=== PATIENT | female | born 1945 | race Caucasian/White ===

== ENCOUNTER 2023-11-06 05:59 | Observation (INO) ==
--- NOTE | 2023-10-19 15:12 | PAT Medication Instructions ---
Medication Instructions Date of Service October 19, 2023 Home Medications cholecalciferol (vitamin D3) 125 mcg (5,000 unit) disintegrating tablet 125 mcg PO Q30D clonidine HCl 0.17 mg tablet,extended release 24 hr 0.17 mg PO QAM cyanocobalamin (vitamin B-12) 1,000 mcg tablet (Vitamin B-12) 1,000 mcg PO DAILY furosemide 20 mg tablet 20 mg PO BID losartan 50 mg-hydrochlorothiazide 12.5 mg tablet 1 tab PO HS lubiprostone 24 mcg capsule 24 mcg PO QAM metformin 500 mg tablet 500 mg PO BID morphine 15 mg immediate release tablet 15 mg PO HS potassium chloride 10 mEq oral packet 10 meq PO BID tamoxifen 20 mg tablet 20 mg PO QPM tizanidine 2 mg capsule 2 mg PO Q8H PRN muscle spasms MEDICATION INSTRUCTIONS: ASK your surgeon for instructions tamoxifen 20 mg tablet 20 mg PO QPM DO NOT take the morning of surgery cholecalciferol (vitamin D3) 125 mcg (5,000 unit) disintegrating tablet 125 mcg PO Q30D potassium chloride 10 mEq oral packet 10 meq PO BID metformin 500 mg tablet 500 mg PO BID lubiprostone 24 mcg capsule 24 mcg PO QAM cyanocobalamin (vitamin B-12) 1,000 mcg tablet (Vitamin B-12) 1,000 mcg PO DAILY furosemide 20 mg tablet 20 mg PO BID Take morning of surgery With a small sip of water, OTHERWISE NOTHING TO EAT OR DRINK AFTER MIDNIGHT: clonidine HCl 0.17 mg tablet,extended release 24 hr 0.17 mg PO QAM tizanidine 2 mg capsule 2 mg PO Q8H PRN muscle spasms Take evening before surgery tizanidine 2 mg capsule 2 mg PO Q8H PRN muscle spasms potassium chloride 10 mEq oral packet 10 meq PO BID morphine 15 mg immediate release tablet 15 mg PO HS losartan 50 mg-hydrochlorothiazide 12.5 mg tablet 1 tab PO HS metformin 500 mg tablet 500 mg PO BID furosemide 20 mg tablet 20 mg PO BID Other Notes If you have any questions please call us at [phone] or [phone] or [phone] or [phone]
--- NOTE | 2023-10-26 12:52 | Anesthesiology Consultation ---
Date of Service October 26, 2023 Assessment & Plan (1) Encounter for pre-operative examination: Plan - check BSG am DOS. - right arm restriction. - difficult IV stick-IV team marked on OR notification. - h/o PONV: patient states will need scopolamine patch and that it was used earlier this year during cholecystectomy-denies adverse effects. To anesthesiologist review am DOS. - h/o marcelo-operative anxiety: patient requests that straps on limbs not be applied until she is "asleep." - combination injection with cortisone and betamethasone with marcaine; has tolerated po prednisone since that reaction without issue. She states pain manag ement provider has not injected knee with marcaine since that reaction-denies being considered to have allergy to marcaine-denies testing. This was discussed with Dr. Roberts who advised nothing additional was needed. - Case discussed in detail with Dr. Maloney who advised nothing additional is needed prior to surgery. Chart Review Chart Review: Patient seen in Pre Admission Testing Teaching & Discussion Pre-Anesthesia Teaching/Discussion Notes: Instructed NPO after midnight before surgery, except medications with 15 cc of water. Medication instructions provided according to the PAT guidelines. History Surgery Operation Date: 11/06/23 11:50 Proposed Procedures p L3-L4, L4-L5 Decompression - Chuy Castro MD Height/Weight Height: 5 ft 1 in Weight: 71 kg Allergies Allergy/AdvReac Type Severity Reaction Status Date / Time levofloxacin [From Levaquin] Allergy Severe Anaphylaxis Verified 10/26/23 13:19 Penicillins Allergy Severe Anaphylaxis Verified 10/26/23 13:19 tetracycline Allergy Severe unknown Verified 10/26/23 13:19 per daughter and patient montelukast [From Singulair] Allergy Unknown Verified 10/26/23 13:19 celecoxib [From Celebrex] Allergy Verified 10/26/23 15:23 latex Allergy Blister Verified 10/19/23 13:17 acetaminophen [From Vicodin] AdvReac Severe hallucinati Verified 10/26/23 13:19 ons cortisone AdvReac Severe stroke Verified 10/26/23 13:44 like symptoms diazepam [From Valium] AdvReac Severe hallucinati Verified 10/26/23 13:19 ons fluoxetine [From Prozac] AdvReac Severe hallucinati Verified 10/26/23 13:19 ons/confusi on hydrocodone [From Vicodin] AdvReac Severe hallucinati Verified 10/26/23 13:19 ons NSAIDS (Non-Steroidal AdvReac Severe severe Verified 10/26/23 13:20 Anti-Inflamma headache above 200 mg per patient and daughter oxycodone [From Percocet] AdvReac Severe hallucinati Verified 10/26/23 13:19 ons potassium chloride AdvReac unbearable Verified 10/19/23 13:17 pain/burning propoxyphene AdvReac hallucinati Verified 10/26/23 13:19 [From Darvocet-N] ons betamethsone with marcaine Allergy Uncoded 10/26/23 15:23 Medications Home Medications Medication Instructions Recorded Confirmed Last Taken cholecalciferol (vitamin D3) 125 125 mcg PO Q30D 10/19/23 10/19/23 Unknown mcg (5,000 unit) disintegrating tablet clonidine HCl 0.17 mg 0.17 mg PO QAM 10/19/23 10/19/23 Unknown tablet,extended release 24 hr cyanocobalamin (vitamin B-12) 1,000 mcg PO DAILY 10/19/23 10/19/23 Unknown 1,000 mcg tablet (Vitamin B-12) furosemide 20 mg tablet 20 mg PO BID 10/19/23 10/19/23 Unknown losartan 50 mg-hydrochlorothiazide 1 tab PO HS 10/19/23 10/19/23 Unknown 12.5 mg tablet lubiprostone 24 mcg capsule 24 mcg PO QAM 10/19/23 10/19/23 Unknown metformin 500 mg tablet 500 mg PO BID 10/19/23 10/19/23 Unknown morphine 15 mg immediate release 15 mg PO HS 10/19/23 10/19/23 Unknown tablet potassium chloride 10 mEq oral 10 meq PO BID 10/19/23 10/19/23 Unknown packet tamoxifen 20 mg tablet 20 mg PO QPM 10/19/23 10/19/23 Unknown tizanidine 2 mg capsule 2 mg PO Q8H PRN muscle spasms 10/19/23 10/19/23 Unknown albuterol 90 mcg/actuation aerosol mcg inhalation PRN Wheezing 10/26/23 Unknown inhaler Additional Notes: Patient advised to continue prn albuterol inhaler as usual. Past Medical History Medical History (Updated 10/30/23 @ 10:27 by Ivonne Rivera PA-C) Asthma inh prn-controlled, stable per pt-last albuterol inhaler use 2 weeks ago Claustrophobia Diabetes mellitus, type 2 NIDDM Difficult intravenous access "very hard stick, must have experienced person inserting it" GERD (gastroesophageal reflux disease) infrequent History of anesthesia reaction slow to wake, severe PONV needing scop patch per patient-notes was used earlier this year for cholecystectomy History of postoperative nausea and vomiting benefit-with scop patch Hx of breast cancer 2020, sx and xrt, right breast Hypertension controlled, stable per pt RSD (reflex sympathetic dystrophy) right arm limb restriction Patient denies h/o stroke, seizures, heart attack, heart failure, HTN, blood clots/DVTs or blood transfusions. Exercise / Class Metabolic Activity II 4-5 Yardwork/Stairs/Walk up hill (denies chest discomfort or shortness of breath with one flight of stairs) Past Surgical History Surgical History (Updated 10/26/23 @ 13:25 by Ivonne Rivera PA-C) History of cardiac cath in the or , [facility] in [place], SOB w/exertion, no stents; no current cardio. History of decompression of ulnar nerve left elbow History of partial mastectomy of right breast History of total right knee replacement Hx laparoscopic cholecystectomy Hx of bilateral cataract extraction Hx of lumbosacral spine surgery ~2015, [facility] in [place] (w/dr. castro) Hx of total hysterectomy with removal of both tubes and ovaries w/appendectomy-patient and daughter unsure Past Anesthesia History Other (slow to wake-denies needing re-intubation; several family members also slow to wake and h/o PONV ) History of PONV No Hx of Motion Sickness and History of PONV (patient states she needs scop patch) Social History Smoking Status: Never smoker Do You Dip or Chew Tobacco: No Hx Alcohol Use: No Hx Substance Use: No substance use type: does not use Review of Systems Snoring, denies witnessed apneas. Patient denies chest pain, shortness of breath, dyspnea on exertion, fever, chills, cough, wheezing, or palpitations. Physical Exam Vital Signs Vitals BP 98/58 manual left arm (patient and daughter who is nurse state that patient just took antihypertensive 1 hour ago and that with intentional weight loss PCP is considering reducing antihypertensive-she denies any dizziness or lightheadedness) P 58 TEMP 97.8 SP02 98% on RA RESP 18 Physical Patient resting comfortably in chair in no acute distress, alert and oriented, r esponding appropriately throughout visit Full cervical extension range of motion without pain TMD 3.5 finger breadths Mallampati Score 2 Dentition: edentulous, full upper and lower dentures Lungs: normal respiratory effort. Good air movement, clear throughout to auscultation, no adventitious breath sounds Cardiac: regular rate and rhythm, no murmurs noted Carotid arteries: negative bruit bilat Lab Results Anesthesia Preop Results Results Anesthesia Widget: WBC 5.97 K/ul (4.8-10.8) 10/26/23 Hgb 11.7 g/dl (12.0-16.0) L 10/26/23 Hct 35.2 % (37.0-47.0) L 10/26/23 Plt 243 K/uL (130-400) 10/26/23 Na 140 mmol/L (136-145) 10/26/23 K 3.9 mmol/L (3.5-5.1) 10/26/23 Cl 100 mmol/L (98-107) 10/26/23 CO2 30 mmol/L (21-32) 10/26/23 BUN 30 mg/dl (6-23) H 10/26/23 Creat 1.17 mg/dl (0.6-1.2) 10/26/23 Glucose Level 101 mg/dl (70-99(Fasting)) H 10/26/23 PT 10.1 Seconds (9.0-12.0) 10/26/23 PTT 25 Seconds (21-31) 10/26/23 INR 0.9 (0.9-1.1) 10/26/23 HA1c 5.6 % (4.5-5.6) 10/26/23 Blood Type O Positive 10/26/23 Antibody Screen NEGATIVE 10/26/23 Testing Electrocardiogram Date: 10/26/23 Sinus bradycardia with sinus arrhythmia, rate 56 bpm RBBB Chest X-Ray Date: 10/26/23 No acute process.
[~2023-11-06 05:59] MED LIST: ALLERGY Noted to ORDERED Medication SCH; General Order Problem(s) SCH
[2023-11-06] MEDS: VANCOMYCIN HCL 1,000 MG/270 ML BAG IV SCH (06:35)
[2023-11-06] MEDS: ACETAMINOPHEN 500 MG TAB PO SCH (06:36)
[2023-11-06] MEDS: GABAPENTIN 300 MG CAP PO SCH (06:36)
[2023-11-06] MEDS: LR 15ML/HR IV SCH (06:37)
[2023-11-06] MEDS: LR 60ML/HR IV SCH (06:37)
[2023-11-06] MEDS ORDERED: ONDANSETRON INJ 2 MG/ML 2 ML VIAL ONE (06:55)
[2023-11-06] MEDS ORDERED: ROCURONIUM BROMIDE 10 MG/ML 5 ML VIAL IV ONE (06:55)
[2023-11-06] MEDS ORDERED: PROPOFOL IV EMULSION 10 MG/ML 20 ML VIAL IV ONE (06:55)
[2023-11-06] MEDS ORDERED: DEXAMETHASONE SOD INJ 4 MG/ML VIAL ONE (06:55)
[2023-11-06] MEDS ORDERED: LIDOCAINE 2% 2 ML VIAL/AMP(20MG/ML) INFIL ONE (06:55)
[2023-11-06] MEDS ORDERED: GLYCOPYRROLATE 0.2 MG/ML VIAL ONE (06:55)
[2023-11-06] MEDS ORDERED: MIDAZOLAM HCL 1 MG/ML 2ML VIAL ONE (06:56)
[2023-11-06] MEDS ORDERED: fentaNYL citrate PF 100 MCG/2 ML VIAL ONE (06:56)
[2023-11-06] MEDS ORDERED: SUGAMMADEX SODIUM 200 MG/2 ML VIAL IV ONE (06:57)
--- NOTE | 2023-11-06 07:00 | History & Physical Bridge Note ---
Date of Service November 06, 2023 History & Physical Bridge Note I have examined the patient, reviewed the History & Physical and in the interval since the performance of the History & Physical I have noted the following changes of clinical significance: no changes noted
[2023-11-06] MEDS ORDERED: KETAMINE HCL 10MG/ML SYR ONE (07:05)
[2023-11-06] MEDS ORDERED: ONDANSETRON INJ 2 MG/ML 2 ML VIAL IV PRN ×2 (07:12→11:11)
[2023-11-06] MEDS ORDERED: ePHEDrine sulfate 50 MG/ML AMP IV PRN (07:12)
[2023-11-06] MEDS ORDERED: HYDROmorphone INJ 1 MG/ML SYRINGE IV PRN (07:12)
[2023-11-06] MEDS ORDERED: ATROPINE SULFATE 0.1 MG/ML 10ML SYR IV PRN (07:12)
[2023-11-06] MEDS: SCOPOLAMINE 1 MG/72 HR TDSY PATCH TD ONE (07:13)
[2023-11-06] MEDS: SCOPOLAMINE 1 MG/72 HR TDSY PATCH TD SCH (07:14)
[2023-11-06] MEDS: BUPIVACAINE 0.5 % 5 MG/1 ML MPF 30ML VIAL ONE (10:32)
[2023-11-06] MEDS: GELATIN SPONGE 12-7MM ONE (10:36)
[2023-11-06] MEDS: THROMBIN 5000 UNITS KIT ONE (10:36)
[2023-11-06] MEDS: VANCOMYCIN HCL 1000MG/20ML VIAL ONE (10:36)
[2023-11-06] MEDS: FLOSEAL HEMOSTATIC MATRIX 10ML TOP ONE (10:37)
[2023-11-06] MEDS ORDERED: KETOROLAC 30 MG/ML VIAL ONE (10:40)
[2023-11-06] MEDS ORDERED: diphenhydrAMINE 50 MG/ML VIAL ONE (10:40)
[2023-11-06] MEDS ORDERED: FAMOTIDINE 20 MG TAB PO PRN (11:11)
[2023-11-06] MEDS ORDERED: DO NOT ADMINISTER FLU VACCINE PRN (11:11)
[2023-11-06] MEDS ORDERED: diphenhydrAMINE Capsule 25 MG CAP PO PRN (11:11)
[2023-11-06] MEDS ORDERED: PROMETHAZINE 12.5 MG/50.5 ML BAG IV PRN (11:11)
[2023-11-06] MEDS ORDERED: hydrOXYzine HCl 25 MG TAB PO PRN (11:11)
[2023-11-06] MEDS ORDERED: METOCLOPRAMIDE HCL INJ 5 MG/ML 2 ML VIAL IV PRN (11:11)
[2023-11-06] MEDS ORDERED: DO NOT ADMINISTER PNEUMOCOCCAL VACCINE PRN (11:11)
[2023-11-06] MEDS ORDERED: bisacodyL 10 MG SUPP PR PRN (11:11)
[2023-11-06] MEDS ORDERED: MAGNESIUM HYDROXIDE SUSP 30 ML UDC PO PRN (11:11)
[2023-11-06] MEDS ORDERED: SOD PHOSPHATE/SOD BIPHOSPHATE ENEMA 132 ML BTL PR PRN (11:11)
[2023-11-06] MEDS ORDERED: LORazepam 0.5 MG TAB PO PRN (11:11)
[2023-11-06] MEDS ORDERED: NALOXONE HCL 0.4 MG/1 ML VIAL/CARP IV PRN (11:11)
[2023-11-06] MEDS ORDERED: ALUMINUM/MAGNESIUM SUSP 30 ML UDC PO PRN (11:11)
[2023-11-06] MEDS ORDERED: LORazepam 0.5 MG in SYRINGE 0.25 ML IV PRN (11:11)
[2023-11-06] MEDS ORDERED: oxyCODONE/ACETAMINOPHEN 5mg/325mg TAB PO PRN (11:11)
--- NOTE | 2023-11-06 11:11 | Post Operative Brief Note ---
PG Immediate Post Op with CF Date of Surgery November 06, 2023 Pre & Post Diagnosis Operation Date: 11/06/23 07:30 Pre-Op Diagnosis: Low Back Pain Radiating to Right Leg Post-Op Diagnosis: Low Back Pain Radiating to Right Leg I identified the patient and participated in the time-out.: Yes Procedure Operation Date: 11/06/23 07:30 Actual Procedures p L3-L4, L4-L5 Decompression(Not Applicable) - Chuy Aguilar MD Surgeon Chuy Aguilar MD Ict Help Desk Officer none Estimated Blood Loss 50 Findings Consistent with Post-Op Diagnosis Specimens Specimen Description: None per surgeon
--- NOTE | 2023-11-06 11:23 | Fluoroscopy Report ---
FL spine 1V any level CLINICAL HISTORY: L3-L4 L4-L5 DECOMPRESSION COMPARISON STUDY: 10/02/2023 FLUOROSCOPY TIME: 22.6 seconds FLUOROSCOPY IMAGES: 2 EXPOSURE DOSE: 14.60 mGy FINDINGS: Retractors are present in addition to a surgical sponge posterior to L4. Note that the imag es were submitted following completion of the surgery. IMPRESSION: Fluoroscopic assistance as above. ACT 112: Negative or not required by law. Electronically signed by: Se Mariscal M.D. 11/06/2023 11:21 AM
[2023-11-06] MEDS: fentaNYL citrate PF 100 MCG/2 ML VIAL IV PRN (11:54)
--- NOTE | 2023-11-06 12:11 | Anesthesiology Progress Note ---
Date of Service November 06, 2023 Anesthesia Post Procedure Vital Signs Vital Signs: Temp Pulse Pulse Resp BP BP Pulse Ox 11/06/23 11:55 62 20 134/62 100 11/06/23 11:45 66 12 127/48 L 99 11/06/23 11:35 57 L 12 127/51 L 100 11/06/23 11:25 51 L 12 109/46 L 100 11/06/23 11:15 53 L 13 117/53 L 100 11/06/23 11:07 97.0 F L 58 L 16 125/54 L 100 11/06/23 06:49 61 21 159/69 H 100 O2 Del Method O2 Flow Rate 11/06/23 11:55 Oxymask 2 11/06/23 11:45 Oxymask 4 11/06/23 11:35 Oxymask 4 11/06/23 11:25 Oxymask 4 11/06/23 11:15 Oxymask 6 11/06/23 11:07 Oxymask 6 11/06/23 06:49 Room Air Pain Intensity Back: Pain Intensity: 8 Transfer of Care Handoff Completed per policy Notes Mental Status: alert / awake / arousable and participated in evaluation Patient Amnestic to Procedure: Yes Nausea / Vomiting: adequately controlled Pain: adequately controlled Airway Patency, RR, SpO2: stable & adequate BP & HR: stable & adequate Hydration State: stable & adequate Anesthetic Complications: no major complications apparent and Pt Satisfied with anesthetic care
[2023-11-06] MEDS: CHECK SCOPOLAMINE PATCH PLACEMENT SCH (12:54)
[2023-11-06] MEDS: LACTATED RINGER'S 1,000 ML IV SCH (12:55)
--- NOTE | 2023-11-06 13:16 | Hospitalist Consultation ---
Date of Consultation November 06, 2023 Assessment & Plan (1) Lumbar stenosis with neurogenic claudication: Assessment: 1. Lumbar spinal stenosis status post spine decompression L3/L4-L4/L5. Postop day 0 today. Doing well postoperatively. 2. History of hypertension continue home meds. 3. History of diabetes mellitus type 2 [id number]. Accu-Cheks with an order to notify physician if blood glucose less than 80 or greater than 180. 5. History of breast carcinoma status post partial lumpectomy and radiation. This was 3 years ago. There is been no recurrence of the patient knows of. The patient continues to be on tamoxifen daily. Plan: As discussed above. Accu-Cheks before meals and at bedtime. Will be called less than 80 or greater than 180. Will introduce a sliding scale if necessary. Morning labs have been ordered. Please refer to orders for further planning. We thank you for the opportunity to participate in the care of Ms. Trujillo if she continues to convalesce her lumbar spine surgery [facility]. Continue to follow with her on a daily basis and as needed as medical issues arise. History of Present Illness Reason for Consultation: Consultation for medical management status post lumbar spine decompression secondary to lumbar spinal stenosis with radicular pain right sided. Attending Physician: Chuy Aguilar MD History of Present Illness This is a 78-year-old female who presented today to [facility] to undergo elective decompression L3/L4-L4/L5 with the spine surgery. Patient tolerated the procedure well hospitalist consultation was placed for medical management. Allergies Allergy/AdvReac Type Severity Reaction Status Date / Time latex Allergy Severe Blister Verified 11/06/23 06:42 celecoxib [From Celebrex] Allergy Shakiness Verified 11/06/23 06:42 cortisone Allergy Shakiness Verified 11/06/23 06:42 hydrocodone Allergy Vomiting Verified 11/06/23 06:42 montelukast [From Singulair] Allergy Shakiness Verified 11/06/23 06:42 NSAIDS (Non-Steroidal Allergy Hives Verified 11/06/23 06:42 Anti-Inflamma oxycodone Allergy Vomiting Verified 11/06/23 06:42 Penicillins Allergy Anaphylaxis Verified 11/06/23 06:42 tetracycline Allergy Anaphylaxis Verified 11/06/23 06:42 potassium chloride AdvReac Unknown Verified 11/06/23 06:42 Home Medications Medication Instructions Recorded Confirmed Type cholecalciferol (vitamin D3) 125 125 mcg PO Q30D 10/19/23 11/06/23 History mcg (5,000 unit) disintegrating tablet clonidine HCl 0.17 mg 0.17 mg PO QAM 10/19/23 11/06/23 History tablet,extended release 24 hr cyanocobalamin (vitamin B-12) 1,000 mcg PO DAILY 10/19/23 11/06/23 History 1,000 mcg tablet (Vitamin B-12) furosemide 20 mg tablet 20 mg PO BID 10/19/23 11/06/23 History losartan 50 mg-hydrochlorothiazide 1 tab PO HS 10/19/23 11/06/23 History 12.5 mg tablet lubiprostone 24 mcg capsule 24 mcg PO QAM 10/19/23 11/06/23 History metformin 500 mg tablet 500 mg PO BID 10/19/23 11/06/23 History morphine 15 mg immediate release 15 mg PO HS 10/19/23 11/06/23 History tablet potassium chloride 10 mEq oral 10 meq PO BID 10/19/23 11/06/23 History packet tamoxifen 20 mg tablet 20 mg PO QPM 10/19/23 11/06/23 History tizanidine 2 mg capsule 2 mg PO Q8H PRN muscle spasms 10/19/23 11/06/23 History albuterol 90 mcg/actuation aerosol mcg inhalation PRN Wheezing 10/26/23 History inhaler Patient History Medical History GERD (gastroesophageal reflux disease) infrequent Claustrophobia History of postoperative nausea and vomiting benefit-with scop patch History of anesthesia reaction slow to wake, severe PONV needing scop patch per patient-notes was used earlier this year for cholecystectomy RSD (reflex sympathetic dystrophy) right arm limb restriction Difficult intravenous access "very hard stick, must have experienced person inserting it" Diabetes mellitus, type 2 NIDDM Hx of breast cancer 2020, sx and xrt, right breast Asthma inh prn-controlled, stable per pt-last albuterol inhaler use 2 weeks ago Hypertension controlled, stable per pt Surgical History History of total right knee replacement History of decompression of ulnar nerve left elbow Hx of total hysterectomy with removal of both tubes and ovaries w/appendectomy-patient and daughter unsure History of partial mastectomy of right breast Hx of bilateral cataract extraction History of cardiac cath in the or , [facility] in [place], SOB w/exertion, no stents; no current cardio. Hx of lumbosacral spine surgery ~2016, [facility], [facility] in [place] (w/dr. aguilar) Hx laparoscopic cholecystectomy Social History Smoking Status: Never smoker Second Hand Exposure: No; Do You Dip or Chew Tobacco: No; Tobacco Cessation Education Requested by Patient: No Hx Alcohol Use: No Hx Substance Use: No Preferred Language: Irish Communication Ability: Effective Inorganic Chemical Technician Required: No Beliefs That Will Affect Care: None Current Living Situation: Family Other Information That Helps Us Care for You: No Feels Safe at Home: Yes Safety Concerns: Feels Safe At This Time Assistive Devices: Denture - Upper, Denture - Lower, Glasses and Hearing Aid - Bilateral Review of Systems Review of Systems: A 10 point review of system was obtained and unless otherwise stated here or in history of present illness are negative and noncontributory to chief complaint. Physical Exam Physical Exam: In General: In general she is pleasant 78-year-old female she is from [facility] where she works in the [employer]. She has no specific complaints of back she states her radicular type pain and numbness and paresthesias are actually improving on her right foot postoperatively already. HEENT: Normocephalic atraumatic pupils are equal round and reactive to light bilaterally. No scleral icterus no conjunctival injection external auditory canals are patent septum is in the midline nose is without discharge oral mucosa is pink and moist without lesion. NECK: Supple no rigidity no lymphadenopathy no thyromegaly no carotid bruits no JVD no masses. HEART: Regular rate and rhythm I do not appreciate any ectopy or rub. No murmur. LUNGS: Clear to auscultation bilaterally and anteriorly with no evidence of adventitious sounds/wheezes rales or rhonchi. ABDOMEN: Soft nontender, no rebound, no peritoneal signs, positive bowel sounds, no appreciable organomegaly. EXTREMITIES: Neurovascularly extremities are intact. There is no significant clubbing cyanosis or edema. NEUROLOGICAL: Cranial nerves II through XII are grossly intact with no focal deficit elicited upon examination. No tremor. Results & Data Results & Data Vital Signs (Past 12 Hours) Vital Signs Temp Pulse Pulse Pulse Resp BP BP 11/06/23 13:00 36.3 C L 53 L 14 122/70 11/06/23 12:41 36.5 C 57 L 16 117/60 11/06/23 12:15 60 16 116/48 L 11/06/23 12:05 36.5 C 59 L 16 112/49 L 11/06/23 11:55 62 20 134/62 11/06/23 11:45 66 12 127/48 L 11/06/23 11:35 57 L 12 127/51 L 11/06/23 11:25 51 L 12 109/46 L 11/06/23 11:15 53 L 13 117/53 L 11/06/23 11:07 36.1 C L 58 L 16 125/54 L 11/06/23 06:49 61 21 159/69 H Pulse Ox O2 Del Method O2 Flow Rate 11/06/23 13:00 100 Nasal Cannula 2 11/06/23 12:41 99 Nasal Cannula 2 11/06/23 12:15 95 Nasal Cannula 2 11/06/23 12:05 95 Nasal Cannula 2 11/06/23 11:55 100 Oxymask 2 11/06/23 11:45 99 Oxymask 4 11/06/23 11:35 100 Oxymask 4 11/06/23 11:25 100 Oxymask 4 11/06/23 11:15 100 Oxymask 6 11/06/23 11:07 100 Oxymask 6 11/06/23 06:49 100 Room Air PG Care Time/CCT Total # of Minutes Spent Total Time Spent with Patient: Total time spent is greater than 50% in coordination of care (as documented) at patient's floor/unit and/or counseling patient: Coding Level of Care Code 58327 IN/OBS CONSULT LVL 4,60M Diagnoses Lumbar stenosis with neurogenic claudication M48.062
--- NOTE | 2023-11-06 14:57 | Operative Report ---
PG Post Operative Report Pre & Post Diagnosis Operation Date: 11/06/23 07:30 Pre-Op Diagnosis: Low Back Pain Radiating to Right Leg Post-Op Diagnosis: Low Back Pain Radiating to Right Leg I identified the patient and participated in the time-out.: Yes Procedure Operation Date: 11/06/23 07:30 Actual Procedures p L3-L4, L4-L5 Decompression(Not Applicable) - Chuy Aguilar MD Surgeon Chuy Aguilar MD Flue Gas Analyst none Estimated Blood Loss 50 Findings Consistent with Post-Op Diagnosis Specimens none Description of Procedure 1. L3-4 posterior lumbar decompression. (48881) 2. L4-5 posterior lumbar decompression. (55448) Patient was taken the operating room after adequate anesthesia was carefully positioned prone on the [place] frame. After doing so, preprepped was performed, fluoroscopy was brought in and I marked for the location of the incision in the lower lumbar spine. Prep and drape was performed, made a midline incision down to the L3-4 spinous processes then exposing the interspace area bilaterally at L3-4 and L4-5. Retractors were set, I began the procedure with removal of the inferior aspect spinous process of L4, and then exposing her lamina region more extensively. Bilateral hemilaminectomies were performed at the L4 level also including the superior laminar edge of L5 and partial medial facetectomies. The ligamentum flavum was then thinned and removed with extensive decompression of the region including the exiting L4 and L5 nerve roots. Retractors were then moved to the L3-4 level and an identical fashion the decompression was performed with bilateral hemilaminectomies partial medial facetectomies and decompression of the exiting L3 and L4 nerve roots and also including along the superior laminar edge of L4. The operative sites were then examined, no issues were noted, the operative site was irrigated, I then injected local in around the operative region followed by vancomycin powder. 0 Vicryl sutures were then placed reattaching the supraspinous ligament were available, followed by an additional layer of 0 and 2-0 Vicryl sutures, pinky for the skin. Sterile dressing was applied, the patient was taken recovery room satisfactory condition. I attest to the content of the Intraoperative Record and any orders documented therein. Any exceptions are noted below.
[2023-11-06] MEDS ORDERED: ceFAZolin 1000MG 1,000 MG/7.5 ML SYR IV SCH (17:15)
[2023-11-06] MEDS: metFORMIN HCL 500 MG TAB PO SCH (18:22)
[2023-11-06] MEDS: HYDROmorphone INJ 0.5 MG/0.5 ML SYR IV PRN (18:25)
[2023-11-06] MEDS: VANCOMYCIN HCL 1,000 MG in SODIUM CHLORIDE 0.9% 250 ML IV ONE (19:46)
[2023-11-06] MEDS: ACETAMINOPHEN 1,000 MG/100 ML VIAL IV PRN (19:58)
[2023-11-06] MEDS: TAMOXIFEN CITRATE 10 MG TABLET PO SCH (20:03)
[2023-11-06] MEDS: POTASSIUM CHLORIDE 10 MEQ TABCR PO SCH (20:04)
[2023-11-06] MEDS: LOSARTAN/HCTZ 50/12.5MG TAB PO SCH (20:05)
[2023-11-06] MEDS: DOCUSATE SODIUM/SENNA 50/8.6MG TAB PO SCH (20:05)
[2023-11-06] MEDS: FUROSEMIDE 20 MG TAB PO SCH (20:05)
[2023-11-07] MEDS: POLYETHYLENE (MIRALAX) 17 GM PACK PO SCH (05:56)
[2023-11-07 08:02] LABS: Basophils # (auto) 0.02 K/uL (0.00-0.20); Basophils % (auto) 0.2 %; Eosinophils # (auto) 0.06 K/uL (0.00-0.50); Eosinophils % (auto) 0.7 %; Hematocrit (blood only) 31.3 % (37.0-47.0); Hemoglobin 10.2 g/dl (12.0-16.0); Immature Granulocytes # (auto) 0.02 K/uL (0.01-0.20); Immature Granulocytes % (auto) 0.2 %; Lymphocytes # (auto) 1.18 K/uL (1.20-3.40); Lymphocytes % (auto) 14.6 %; Mean Corpuscular Hemoglobin 29.7 pg (25.0-34.0); Mean Corpuscular Hgb Conc 32.6 g/dL (32.0-36.0); Mean Corpuscular Volume 91.3 fL (80.0-100.0); Mean Platelet Volume 11.5 fL (9.4-12.4); Monocytes # (auto) 0.54 K/uL (0.11-0.59); Monocytes % (auto) 6.7 %; Neutrophils # (auto) 6.24 K/uL (1.40-6.50); Neutrophils % (auto) 77.6 %; Platelet Count 169 K/uL (130-400); RDW Coefficient of Variation 12.9 % (11.5-14.5); RDW Standard Deviation 42.5 fL (36.4-46.3); Red Blood Count 3.43 M/uL (4.20-5.40); White Blood Count 8.06 K/ul (4.8-10.8)
[2023-11-07] MEDS: LUBIPROSTONE 8 MCG CAP PO SCH (08:16)
[2023-11-07 08:22] LABS: Albumin Globulin Ratio 1.8 (0.9-2); Albumin Level 3.5 gm/dl (3.4-5.0); Bilirubin,Total 0.5 mg/dl (0.2-1.0); Calcium 8.6 mg/dl (8.6-10.3); Creatinine Clr Calc Pharmacy 30.3 ml/min; Est GFR (African American) 41.5 ml/min; Est GFR (Non-African American) 35.8 ml/min; Magnesium 1.7 mg/dl (1.7-2.4); Total Protein 5.5 gm/dl (6.0-8.3)
--- NOTE | 2023-11-07 09:04 | Orthopedic Progress Note ---
Date of Service November 07, 2023 Assessment & Plan (1) Lumbar stenosis with neurogenic claudication: (2) Low back pain radiating to right leg: Subjective Patient seen and examined, she notes a distinct improvement in her lower extremity symptoms that she had prior to the surgery, less numbness and tingling and also pain in both lower extremities. Incision site with minimal drainage. Neurovascularly intact, motor intact. Impression: Postop day 1 from L3-4 and L4-5 lumbar decompression with significant improvement in lower extremity symptoms from preoperative. Plan: Patient will mobilize with physical therapy today, I related to her that she can leave later on today if she passes all measures and is cleared by medicine, probably not staying beyond tomorrow morning if found to be necessary. I discussed all this with the patient's daughter on the phone afterwards including stopping on the drive back to [facility] for ambulation on a regular basis and also taking ASA. A prescription for tramadol will be issued to their home pharmacy, that along with acetaminophen and ibuprofen [id number] can be utilized. Follow-up will be in 2 weeks. Review of Systems All systems reviewed & are unremarkable except as noted in HPI & below. Physical Exam . Results & Data Results & Data Laboratory Results . Diagnostic Findings . PG Care Time/CCT Total # of Minutes Spent Total Time Spent with Patient: Total time spent is greater than 50% in coordination of care (as documented) at patient's floor/unit and/or counseling patient: Coding Level of Care Code 51843 Post Operative Follow-Up Diagnoses Lumbar stenosis with neurogenic claudication M48.062 Low back pain radiating to right leg M54.50; M79.604
--- NOTE | 2023-11-07 09:08 | Discharge Summary ---
Date of Service November 07, 2023 Admission HPI (Per Admitting) Spinal stenosis, decompression at L3-4 and L4-5 on November 06, 2023 Principal Diagnosis Same as "Discharge Diagnosis" noted below under Discharge Instructions. Discharge Exam . Discharge Data Consultations 11/06/23 11:14 Consult Hospitalist Routine Procedures Performed Operation Date: 11/06/23 07:30 Actual Procedures p L3-L4, L4-L5 Decompression(Not Applicable) - Chuy Aguilar MD Ordered Studies 11/06/23 07:30 FL spine 1V any level Routine Hospital Course (1) Lumbar stenosis with neurogenic claudication: Surgical decompression L3-4, L4-5 on November 06, 2023. (2) Low back pain radiating to right leg: PG Care Time/CCT Total # of Minutes Spent Total Time Spent with Patient: Total time spent is greater than 50% in coordination of care (as documented) at patient's floor/unit and/or counseling patient: Discharge Plan Discharge Items Patient Disposition: Home - Self-Care Reason For Visit: Low Back Pain Radiating to Right Leg Discharge Diagnosis: Lumbar stenosis with neurogenic claudication. Condition on Discharge: Good Activity: As commented below Lifting: No more than 25 pounds Bathing: May shower/bathe in 3 days Exercise/Sports: As tolerated Weightbearing: Full weightbearing Non-emergency contact: Surgeon Call non-emergency contact if: your pain is worsening Follow-up/Referrals: Chuy Aguilar MD [Surgeon] - 11/22/23 9:20 am PCP,NO [Primary Care Provider] - (PATIENT IS A RESIDENT OF [place]. SHE WILL FOLLOW UP WITH HER PRIMARY CARE PHYSICIAN IN 7-10 DAYS.) Diet: Regular Addtl Attending Provider Instructions: Surgical site care discussed. Tramadol prescription for pain sent to home pharmacy. Adjuvant medications to include acetaminophen and/or ibuprofen [id number]. Follow-up in 2 weeks, recommend regular ambulation. Prescription for tramadol will be sent through ambulatory chart. Pending Studies at Discharge: No Stand-Alone Forms: [employer], Smoking Cessation Medications and DC Order Prescriptions: Continued tramadol 50 mg tablet 50 mg PO BID PRN (Reason: pain) Qty: 30 0RF metformin 500 mg Tablet 500 mg PO BID cyanocobalamin (vitamin B-12) [Vitamin B-12] 1,000 mcg Tablet 1,000 mcg PO DAILY furosemide 20 mg Tablet 20 mg PO BID losartan-hydrochlorothiazide 50-12.5 mg Tablet 1 tab PO HS morphine 15 mg Tablet 15 mg PO HS tamoxifen 20 mg Tablet 20 mg PO QPM tizanidine 2 mg Capsule 2 mg PO Q8H PRN (Reason: muscle spasms) lubiprostone 24 mcg Capsule 24 mcg PO QAM clonidine HCl 0.17 mg Tablet Extended Release 24 Hr 0.17 mg PO QAM cholecalciferol (vitamin D3) 125 mcg (5,000 unit) Tablet,Disintegrating 125 mcg PO Q30D potassium chloride 10 mEq Packet 10 meq PO BID Patient Comments: unable to take potassium IV, causes unbearable pain/burning albuterol 90 mcg/actuation Aerosol INHALATION PRN (Reason: Wheezing) Patient Comments: has not taken this week Discharge Orders: Discharge Order (Routine); Ordered 11/08/23 Ordered By: Chuy Aguilar Admission Data Admit Date/Time: 11/06/23 11:11 Attending Provider: Chuy Aguilar Admit Provider: Chuy Aguilar Primary Care Provider: PCP,NO Other Providers: Dale Hale Other Interventions: Discharge Summary Assessment (RN) Last Done: 11/08/23 09:25
--- NOTE | 2023-11-07 11:44 | Hospitalist Progress Note ---
Date of Service November 07, 2023 Assessment & Plan (1) Lumbar stenosis with neurogenic claudication: Plan: Patient had lumbar spine decompression L3/L4-L4/L5 on 11/06/[address] Aguilar. -Pain control, perioperative antibiotics, VTE prophylaxis, bowel regimen, activi ty level, discharge planning per primary team. -Reported episode of coughing while eating chicken in the evening of 11/05, which resolved after a few minutes. > No hypoxia, shortness of breath, continued coughing, chest pain, wheezing, or fever -- therefore, suspicion for aspiration is low. Continue to monitor. -Patient is medically stable for discharge from hospital medicine's perspective. Per ortho, anticipating discharge tomorrow, 11/08/23. (2) Hypertension: Plan: History of hypertension continue home meds. (3) Diabetes mellitus, type 2: Plan: History of diabetes mellitus type 2 [id number]. Accu-Cheks with an order to notify physician if blood glucose less than 80 or greater than 180. Will introduce a sliding scale if necessary. Plan History of breast carcinoma status post partial lumpectomy and radiation. This was 3 years ago. There is been no recurrence of the patient knows of. The patient continues to be on tamoxifen daily. Patient is medically stable for discharge from hospital medicine's perspective. Anticipate discharge tomorrow, 11/08/2023. CODE STATUS: Full code Admission and Anticipated Discharge Date Admission Date: November 06, 2023 Subjective Patient seen and evaluated at bedside. She reports that she has some postoperative back pain, which is decently controlled. She reports that her symptoms prior to the surgery are significantly improved, with paresthesias and pain subsided in her lower extremities bilaterally as well as decreased swelling in her right knee. She worked with PT today and she reports this went well. She notes that she did have an episode of possible aspiration while eating chicken last night. She reports that it "felt stuck in her throat" which resolved after coughing. She denies shortness of breath, difficulty breathing, cough, further episodes of aspiration, or hypoxia. Anticipate discharge tomorrow. Patient is medically stable for discharge from hospital medicine's perspective. Patient has no additional complaints or concerns at this time. Physical Exam Physical Exam: General: No acute distress, nondiaphoretic, well-developed, well-nourished. Skin: The skin was without rashes, erythema, edema, or bruising. Cardiac: Regular rate and rhythm without murmurs gallops or rubs. Pulm: Clear to auscultation bilaterally without wheezes, rales or rhonchi. No respiratory distress. 100% on room air. Abdominal: Soft, nontender, nondistended. Bowel sounds present. Neuro: A&O x3. No focal neurological deficits. Extremities: Neurovascularly intact. Sensation and motor function intact. Ca pillary refill <3 seconds. Results & Data Results & Data Vital Signs (Past 12 Hours) Vital Signs Temp Pulse Pulse Resp BP Pulse Ox O2 Del Method 11/07/23 11:33 36.8 C 59 L 16 140/62 98 Room Air 11/07/23 07:03 36.5 C 60 16 101/57 L 100 Room Air 11/07/23 03:14 36.4 C L 52 L 16 112/67 98 Room Air Laboratory Results Reviewed CBC Reviewed CMP PG Care Time/CCT Total # of Minutes Spent Total Time Spent with Patient: Total time spent is greater than 50% in coordination of care (as documented) at patient's floor/unit and/or counseling patient: Coding Level of Care Code 77974 SUB INP/OBS CARE 2/35MIN Diagnoses Lumbar stenosis with neurogenic claudication M48.062 Hypertension I10 Diabetes mellitus, type 2 E11.9
[2023-11-07] MEDS: tiZANidine HCL 4 MG TABLET PO PRN (19:54)
[2023-11-07] MEDS: ACETAMINOPHEN 500 MG TAB PO PRN (19:54)
[2023-11-08 08:19] VITALS: BP 138/64; PULSE 60; RESP 18; TEMP 98.2; O2SAT 100
--- NOTE | 2023-11-08 08:29 | Orthopedic Progress Note ---
Date of Service November 08, 2023 Subjective Patient seen and examined, notes that she continues to have significant improvement of all her lower extremity symptoms, she is very happy with the results of the surgical procedure. Motor intact, incision with minimal drainage. Impression/plan: Patient 2 days status post L3-4 and L4-5 posterior lumbar decompression with notable improvements in symptoms. The patient will be discharged today with follow-up in 2 weeks, prescriptions for tramadol will be resent. Review of Systems All systems reviewed & are unremarkable except as noted in HPI & below. Physical Exam . Results & Data Results & Data Laboratory Results . Diagnostic Findings . PG Care Time/CCT Total # of Minutes Spent Total Time Spent with Patient: Total time spent is greater than 50% in coordination of care (as documented) at patient's floor/unit and/or counseling patient: Coding Level of Care Code 71263 Post Operative Follow-Up
[2023-11-08] MEDS: ONDANSETRON 4 MG OD TAB PO PRN (11:06)
== END 2023-11-08 13:20 | disposition home or self-care (01) ==
LOC: 3E 05:59 → ASU 05:59
DX: Z85.3 Personal history of malignant neoplasm of breast; Z88.8 Allergy status to other drugs, medicaments and biological substances; Z79.84 Long term (current) use of oral hypoglycemic drugs; I10 Essential (primary) hypertension; K21.9 Gastro-esophageal reflux disease without esophagitis; Z88.1 Allergy status to other antibiotic agents; M54.50 Low back pain, unspecified; J45.909 Unspecified asthma, uncomplicated; Z79.899 Other long term (current) drug therapy; Z91.040 Latex allergy status; Z88.6 Allergy status to analgesic agent; M48.062 Spinal stenosis, lumbar region with neurogenic claudication; Z88.0 Allergy status to penicillin; E11.9 Type 2 diabetes mellitus without complications; F40.240 Claustrophobia